=== PATIENT | female | born 1995 | race African-American/Black ===

== ENCOUNTER → 2016-08-21 | Outpatient (CLI) | payer BC ==
[~2016-08-21] MED LIST: BCPILLS PO; SNG10 PO; ZPAK PO
== END | disposition home or self-care (01) ==
LOC: C.PAPS 15:56
PROVIDERS: ATTEND Obstetrics & Gynecology
DX: Z01.419 Encounter for gynecological examination (general) (routine) without abnormal findings (principal)

== ENCOUNTER 2017-06-26 19:58 | Emergency (ER) | payer BC, OTHER ==
[~2017-06-26] VITALS: Ht 154.9 cm; Wt 98.2 kg
[2017-06-26 20:05] VITALS: TEMP 36.7; Ht 154.9 cm; Wt 98.2 kg
[2017-06-26] MEDS ORDERED: SODIUM CHLORIDE 0.9% 1000ML 1,000 ML IV STA (20:17)
[2017-06-26 20:46] LABS: HEMATOCRIT 34.5 % (37-47); HEMOGLOBIN 11.1 g/dL (12.0-16.0); MEAN CELL VOLUME 74.8 fL (80-100); MEAN CORPUSCULAR HEMOGLOBIN 24.1 pg (25-34); MEAN CORPUSCULAR HGB CONC 32.2 g/dl (32-36); PLATELET COUNT 492 K/uL (130-400); RED CELL DISTRIBUTION WIDTH CV 14.8 % (11.5-14.5); RED CELL DISTRIBUTION WIDTH SD 40.1 fL (36.4-46.3); WHITE BLOOD COUNT 14.43 K/uL (4.8-10.8)
--- NOTE | 2017-06-26 21:01 | EMERGENCY ROOM VISIT NOTE ---
History First contact with patient: 20:10 Chief Complaint: SYNCOPE (NEAR SYNCOPE) Stated Complaint: LIGHT HEADED, BLURRED VISION, FEELS SICK, ANXIOUS Nursing Triage Summary: Pt ambulatory to triage stating "not feeling well for awhile. Today I was at work and felt like I could pass out. My head felt like it was full of air. Sometimes I feel nauseated. I can eat, but I don't eat much only a small portion of food and it comes right out the other end. I don't sleep a lot. I get h/a, recently they have been pretty new. The last time I had my period it lasted 1.5 months and it was really heavy. I got it yesterday and it is heavy. I get chest pain sometimes, but I think it's just me being anxious." Sx x 3 months. History of Present Illness The patient is a 22 year old female who presents to the Emergency Room for evaluation of fatigue. Notes 2 months worsening weakness and fatigue. Initially started when she had heavy prolonged period over several weeks. Notes last few days worsening weakness, fatigue, lightheadedness. Associated with fuzzy feeling in head but without severe headache. Associated with nausea and worse with eating. Having diarrhea as well. Notes minimal sleep due to working 2 jobs daily. No syncope though feels like she is close. Too weak to even make it through work today. Started period again in the last day and notes heavy flow. Vague abdominal discomfort. Periodically uses Naproxen for cramps. Denies any medications taken for this today. Nothing makes better. Exertion makes worse. No past medical history. Takes multivitamin daily without iron as well as control. She denies chest pain, palpitations, fevers, chills, vomiting, syncope, leg swelling, back pain, neck stiffness nor other symptoms. Family history of thyroid and blood sugar issues. Works as [] Review of Systems See HPI for pertinent positives & negatives. A total of 10 systems reviewed and were otherwise negative. Past Medical/Surgical History Medical Problems: (1) No significant medical problems Surgical Problems: (1) No significant past surgical history Social History Smoking Status: Current Every Day Smoker Housing Status: lives with family Occupation Status: student Current/Historical Medications Scheduled Control Pills ( Control Pills), 1 TAB PO DAILY Physical Exam Vital Signs Date Time Temp Pulse Resp B/P (MAP) Pulse Ox O2 Delivery O2 Flow Rate FiO2 3/27/18 22:59 82 16 140/78 98 06/26/17 20:05 36.7 78 16 161/92 100 Room Air Physical Exam GENERAL: Patient is mildly anxious appearing and in no acute distress. EYES: No scleral icterus, unremarkable pupils. Mild pallor to conjunctiva. ENT: Mucous membranes moist, no nasal congestion. NECK: No masses appreciated, no meningismus, trachea is midline. RESPIRATORY: No dyspnea. Clear to auscultation and equal bilaterally. No wheeze , no rhonchi. CARDIOVASCULAR: Regular rate and rhythm. No murmurs, rubs, gallops appreciated. GASTROINTESTINAL: Abdomen soft, nontender, no peritonitis. Bowel sounds positive. No masses appreciated. BACK: No midline tenderness, no CVA tenderness EXTREMITIES: Normal motion all extremities, no cyanosis, no edema. NEUROLOGIC: Alert and oriented, no acute motor or sensory deficits, no focal weakness, cranial nerves grossly intact. SKIN: Vitiligo in places otherwise no rash, no jaundice, no diaphoresis. Medical Decision & Procedures Laboratory Results 06/26/17 20:30 Red Blood Count 4.61, Mean Corpuscular Volume 74.8, Mean Corpuscular Hemoglobin 24.1, Mean Corpuscular Hemoglobin Concent 32.2, Mean Platelet Volume 10.0 06/26/17 20:30 Test 06/26/17 00:00 06/26/17 20:30 06/26/17 20:47 Urine Test NEG (NEG) White Blood Count 14.43 K/uL (4.8-10.8) Red Blood Count 4.61 M/uL (4.2-5.4) Hemoglobin 11.1 g/dL (12.0-16.0) Hematocrit 34.5 % (37-47) Mean Corpuscular Volume 74.8 fL (80-100) Mean Corpuscular Hemoglobin 24.1 pg (25-34) Mean Corpuscular Hemoglobin Concent 32.2 g/dl (32-36) Platelet Count 492 K/uL (130-400) Mean Platelet Volume 10.0 fL (7.4-10.4) RDW Standard Deviation 40.1 fL (36.4-46.3) RDW Coefficient of Variation 14.8 % (11.5-14.5) Neutrophils % (Manual) 52.5 % Lymphocytes % (Manual) 28.1 % Variant Lymphocytes % (manual) 13.2 % Monocytes % (Manual) 5.3 % Eosinophils % (Manual) 0.9 % Neutrophils # (Manual) 7.58 K/uL (1.4-6.5) Total Absolute Neutrophils 7.58 K/uL (1.4-6.5) Lymphocytes # (Manual) 4.05 K/uL (1.2-3.4) Absolute Variant Lymphocytes 1.90 K/uL Total Absolute Lymphocytes 5.96 K/uL (1.2-3.4) Monocytes # (Manual) 0.76 K/uL (0.11-0.59) Eosinophils # (Manual) 0.13 K/uL (0-0.5) Hypochromasia PRESENT Anion Gap 5.0 mmol/L (3-11) Est Creatinine Clear Calc Drug Dose 104.9 ml/min Estimated GFR () 104.5 Estimated GFR (Non- 90.2 BUN/Creatinine Ratio 12.7 (10-20) Calcium Level 9.0 mg/dl (8.5-10.1) Magnesium Level 2.0 mg/dl (1.8-2.4) Thyroid Stimulating Hormone (TSH) 4.310 uIu/ml (0.300-4.500) Monoscreen NEG (NEG) Urine Color YELLOW Urine Appearance CLEAR (CLEAR) Urine pH 6.5 (4.5-7.5) Urine Specific [place] 1.027 (1.000-1.030) Urine Protein NEG (NEG) Urine Glucose (UA) NEG (NEG) Urine Ketones NEG (NEG) Urine Occult Blood NEG (NEG) Urine Nitrite NEG (NEG) Urine Bilirubin NEG (NEG) Urine Urobilinogen NEG (NEG) Urine Leukocyte Esterase NEG (NEG) Urine WBC (Auto) 0 /hpf (0-5) Urine RBC (Auto) 0-4 /hpf (0-4) Urine Hyaline Casts (Auto) 0 /lpf (0-5) Urine Epithelial Cells (Auto) 5-10 /lpf (0-5) Urine Bacteria (Auto) NEG (NEG) Medications Administered Medications (Trade) Dose Ordered Sig/[place] Route Start Time Stop Time Status Last Admin Dose Admin Sodium Chloride 1,000 ml @ 999 mls/hr Q1H1M STAT IV 06/26/17 20:17 06/26/17 21:19 DC 3/27/18 20:41 999 MLS/HR Medical Decision 22 yr old female with vague complaints of fatigue, headache, weakness, etc. She looks quite well and in no distress. A bit on hypertensive side which I suspect is both anxiety and likely somewhat chronic. She has mildly elevated WBC of uncertain etiology. It is clearly not meningitis, no lung issues ( declines CXR), and ua is clear. No abdominal pain and exam is benign. She notes [facility] is aware of issues with bleeding and agrees to follow with them. Stressed follow up with PCP for check on multiple issues. She is mildly anemic and I advised she take mtv with iron. She looks well and ambulating without issue. Head Trauma GCS Score: 15 Medication Reconcilliation Current Medication List: was personally reviewed by me Blood Pressure Screening Patient's blood pressure: Elevated blood pressure Blood pressure disposition: Referred to PCP Impression Primary Impression: Generalized weakness Additional Impressions: Fatigue Anemia Hypertension Departure Information Dispostion Home / Self-Care Condition GOOD Referrals No Doctor, Assigned (PCP) Patient Instructions My [facility] Additional Instructions Your labs reveal you are mildly anemic. You should be taking a multivitamin with Iron daily. Your White Blood Cell count was mildly elevated. Return if you develop fevers, productive cough, abdominal pains, severe headache, neck stiffness or other concerns. It is very important you get better sleep. Chronic sleep deprivation can lead to a variety of medical conditions. Your blood pressure was elevated during this visit. This is quite common in many people who are being evaluated in the Emergency Department for many reasons. However, it is important that you have your Primary Care Provider recheck your blood pressure and discuss whether treatment will be needed. half-way elevated blood pressure can lead to strokes, heart attacks, kidney failure amongst other medical issues. If you develop severe headaches, chest pain, weakness in arms or legs, or other concerning symptoms call 911. You have been examined and treated today on an emergency basis only. This is not a substitute for, or an effort to provide, complete comprehensive medical care. It is impossible to recognize and treat all injuries or illnesses in a single emergency department visit. It is therefore important that you follow up closely with your Primary Physician or [facility]. Call as soon as possible for an appointment so you can review all labs, imaging and other testing that you had. Return to Emergency Department, call 911 or seek immediate medical attention if you feel your symptoms are worsening. Problem Qualifiers
[2017-06-26 21:06] LABS: CREATININE 0.91 mg/dl (0.60-1.20); POTASSIUM 3.8 mmol/L (3.5-5.1)
[2017-06-26 22:59] VITALS: BP 140/78; PULSE 82; O2SAT 98
== END 2017-06-26 23:00 | disposition home or self-care (01) ==
LOC: C.EDB 20:00
DX: R53.1 Weakness (principal); R53.83 Other fatigue; D64.9 Anemia, unspecified; R51 Headache; D72.829 Elevated white blood cell count, unspecified; R03.0 Elevated blood-pressure reading, without diagnosis of hypertension; L80 Vitiligo; F17.200 Nicotine dependence, unspecified, uncomplicated; Z79.3 Long term (current) use of hormonal contraceptives